=== PATIENT | male | born 1985 | race Caucasian/White ===

== ENCOUNTER 2022-11-21 11:27 | Emergency (ER) | payer OTHER, SELFPAY ==
--- NOTE | ~2022-11-21 | CT_ITS ---
EXAMINATION: CT abdomen pelvis wo IV con CLINICAL INFORMATION: Reason for Exam lower abd pain COMPARISON: No prior CT available for comparison. TECHNIQUE: Multidetector volumetric imaging was performed from the superior aspect of the liver through the pubic symphysis , noncontrasted study Sagittal and coronal reformatted images were obtained on the technologist's workstation. This CT examination was performed using dose optimization techniques as appropriate, variously including the following: *Automated exposure control *Adjustment of mA and/or kV according to patient size (this includes techniques or standardized protocols for targeted exams where dose is matched to indication/reason for exam; i.e. extremities or head) *Use of iterative reconstruction technique DLP: 447 mGy-cm FINDINGS: LOWER THORAX: Included lung bases are clear. HEPATOBILIARY: No focal hepatic lesions. No biliary ductal dilatation. GALLBLADDER: Gallbladder unremarkable. SPLEEN: Spleen is normal in size. PANCREAS: No focal mass or ductal dilatation. STOMACH AND GASTROINTESTINAL TRACT: Stomach is grossly unremarkable. There is no bowel distention or thickening. No CT evidence of appendicitis. ADRENALS: No adrenal nodules. KIDNEYS/URETERS: No hydronephrosis, stones or solid mass lesions. URINARY BLADDER: Partially decompressed. PELVIC VISCERA: Unremarkable PERITONEUM: No free air or fluid. LYMPH NODES: No lymphadenopathy. VASCULAR:Abdominal aorta normal in size, no aneurysm found. BONES, ABDOMINAL WALL AND SOFT TISSUES: Age-appropriate changes of the spine and skeletal system, no destructive osteolytic or osteosclerotic bone lesion found CT/CT abdomen pelvis wo IV con IMPRESSION: No CT evidence of acute intra-abdominal process to explain patient's pain symptoms. No evidence of bowel obstruction. No kidney stones or hydronephrosis. No free air or fluid.
[2022-11-21 12:09] VITALS: BP 127/91; PULSE 90; RESP 16; TEMP 36.6; O2SAT 98; BMI 21.7
--- NOTE | 2022-11-21 12:09 | ED_ITS ---
HPI - Abdominal Pain General Chief Complaint: Nausea/Vomiting/Diarrhea <SHALOM Huizar - Last Filed: 11/21/22 12:13> Stated Complaint: vomiting nausea <SHALOM Huizar - Last Filed: 11/21/22 12:13> Time Seen by Provider: 11/21/22 16:23 <SHALOM Huizar - Last Filed: 11/21/22 12:13> Source: patient <Michael Serrano MD - Last Filed: 11/21/22 17:34> Mode of arrival: ambulatory <Michael Serrano MD - Last Filed: 11/21/22 17:34> Limitations: no limitations <Michael Serrano MD - Last Filed: 11/21/22 17:34> History of Present Illness HPI narrative: Patient with chronic upper abdominal pain been to [facility] had a full workup done including endoscopy which was negative comes here for 4 days of epigastric pain unable to drink much soon he drinks feel pain and vomits able to drink liquids. Patient denies any anxiety patient is on PPI also patient has loose bowel <Michael Serrano MD - Last Filed: 11/21/22 17:34> Related Data Home Medications: Previous Rx's Medication Instructions Recorded metoclopramide HCl 10 mg tablet 10 mg PO Q6H PRN nausea and 11/21/22 (Reglan) vomiting #20 tabs sucralfate 100 mg/mL oral 10 ml PO QID #400 mL 11/21/22 suspension (Carafate) <SHALOM Huizar - Last Filed: 11/21/22 12:13> Allergies/Adverse Reactions: Allergies Allergy/AdvReac Type Severity Reaction Status Date / Time No Known Allergies Allergy Verified 11/21/22 12:13 <SHALOM Huizar - Last Filed: 11/21/22 12:13> Review of Systems Review of Systems Yes all other systems are reviewed and are negative <Michael Serrano MD - Last Filed: 11/21/22 17:34> [facility] Social History Social History: Social History Advance Directives: No Advance Directives Information Provided: No <SHALOM Huizar - Last Filed: 11/21/22 12:13> Physical Exam ED Vital Signs: Vital Signs - 24 hr 11/21/22 12:09 11/21/22 15:56 Temperature 98 F 98.2 F Pulse Rate 90 92 Respiratory Rate 16 16 Blood Pressure 127/91 H 129/78 Pulse Oximetry 98 96 Oxygen Delivery Method Room Air Room Air BMI result Body Mass Index 21.7 <SHALOM Huizar - Last Filed: 11/21/22 12:13> Vital Signs - 24 hr 11/21/22 12:09 11/21/22 15:56 Temperature 98 F 98.2 F Pulse Rate 90 92 Respiratory Rate 16 16 Blood Pressure 127/91 H 129/78 Pulse Oximetry 98 96 Oxygen Delivery Method Room Air Room Air BMI result Body Mass Index 21.7 <Michael Serrano MD - Last Filed: 11/21/22 17:34> Appearance: Alert. Oriented X3. No acute distress. Eyes: No pallor or icterus ENT: Pharynx normal. Oral Mucosa moist Neck: Normal inspection. Neck supple. CVS: Normal heart rate and rhythm. Pulses normal. Respiratory: No respiratory distress. Equal air entry bilateral, no wheezing/rales/rhonchi Abdomen: Soft, mild tenderness in epigastric area Bowel sounds are present, no mass palpable, no CVA tenderness Skin: Skin warm and dry. Normal skin color. Normal skin turgor. Extremities: No lower extremity edema. No calf tenderness Neuro: Oriented X 3. No motor deficit. <Michael Serrano MD - Last Filed: 11/21/22 17:34> Course Course Course Narrative: RME-12:10PM - 37yoM presenting to the ED c c/o chills, sweats, N/V/D and mid to lower abd pain x 4 days reports he feels like there is a blockage . Reports he was seen at [facility] few months ago for similar complaint and was told he had a blockage then the doctor got a 2nd opinion and they told him that it was actually Crohn's disease. Then 1 month later he had endoscope which was normal. So patient is unsure what was actually going on with him. He has not followed up with GI. He has a history of appendectomy. He denies any other symptoms complaints or concerns at this time. Plan: Patient is stable to go back to the waiting room to be evaluated in the ED. Labs ordered at this time. <SHALOM Huizar - Last Filed: 11/21/22 12:13> Medical Decision Making Medical Decision Making [facility] Narrative: Patient with chronic upper abdominal pain likely gastritis had recent endoscopy negative CT scan here also is negative patient able to drink p.o. liquids in the ER has a scheduled visit to see world geography teacher next week. Will give sucralfate and Reglan advised to continue PPI and follow with world geography teacher <Michael Serrano MD - Last Filed: 11/21/22 17:34> Lab Data [facility] Lab Attestation statement: I reviewed the patient's lab results. <Michael Serrano MD - Last Filed: 11/21/22 17:34> Result Diagrams: : 11/21/22 12:19 11/21/22 12:19 <SHALOM Huizar - Last Filed: 11/21/22 12:13> Labs: Lab Results 11/21/22 11/21/22 11/21/22 Range/Units 12:19 12:19 12:19 WBC 7.9 (4.8-10.8) X10*3/uL RBC 5.59 (4.60-5.80) X10*6/uL Hgb 16.5 (14.0-18.0) g/dl Hct 49.2 (42.0-52.0) % MCV 88.0 (80.0-98.0) fL MCH 29.5 (27.0-33.0) pg MCHC 33.5 (31.0-36.0) g/dl RDW 12.7 (11.0-16.0) % Plt Count 358 (160-400) X10*3/uL MPV 9.7 (9.4-12.4) fL Immature Gran % (Auto) 0.4 (0.0-0.4) % Neut % (Auto) 71.5 (45-73) % Lymph % (Auto) 19.5 L (20-40) % Stevens % (Auto) 6.8 (2-11) % Eos % (Auto) 1.0 (0-4) % Baso % (Auto) 0.8 (0-2) % Lymph # (Auto) 1.5 (1.2-4.9) X10*3/uL Stevens # (Auto) 0.5 (0.1-1.2) X10*3/uL Eos # (Auto) 0.1 (0.0-0.4) X10*3/uL Baso # (Auto) 0.1 (0.0-0.2) X10*3/uL Abs Immat Gran (auto) 0.03 (0.00-0.03) X10*3/uL Absolute Neuts (auto) 5.7 (2.0-8.3) x10*3/uL Absolute Nucleated RBC 0.000 (0.0-0.012) X10*3/uL Nucleated RBC % (auto) 0.0 (0.0-0.2) /100WBC PT 12.3 (10.0-13.1) SEC INR 1.1 (0.9-1.1) Sodium 141 (135-145) mmol/L Potassium 4.9 (3.3-5.1) mmol/L Chloride 103 (96-108) mmol/L Carbon Dioxide 28 (22-29) mmol/L Anion Gap 15 (12-20) BUN 16 (9-16) mg/dL Creatinine 1.03 (0.5-1.4) mg/dL Estim Creat Clear Calc 99.2 Estimated GFR > 60 Random Glucose 106 (60-115) mg/dL Calcium 10.7 H (8.4-10.2) mg/dL Magnesium 2.2 (1.6-2.6) mg/dL Total Bilirubin 2.3 H (0.0-1.0) mg/dL AST 14 (5-37) U/L ALT 22 (0-40) U/L Alkaline Phosphatase 72 (39-117) U/L Total Protein 8.0 (6.5-8.0) g/dL Albumin 5.2 H (3.5-5.0) g/dL Lipase 16 (8-78) U/L Influenza Type A (PCR) (Negative) Influenza Type B (PCR) (Negative) RSV RNA Qual (PCR) (Negative) SARS-CoV-2 RNA (RT-PCR) (Negative) 11/21/22 Range/Units 12:19 WBC (4.8-10.8) X10*3/uL RBC (4.60-5.80) X10*6/uL Hgb (14.0-18.0) g/dl Hct (42.0-52.0) % MCV (80.0-98.0) fL MCH (27.0-33.0) pg MCHC (31.0-36.0) g/dl RDW (11.0-16.0) % Plt Count (160-400) X10*3/uL MPV (9.4-12.4) fL Immature Gran % (Auto) (0.0-0.4) % Neut % (Auto) (45-73) % Lymph % (Auto) (20-40) % Stevens % (Auto) (2-11) % Eos % (Auto) (0-4) % Baso % (Auto) (0-2) % Lymph # (Auto) (1.2-4.9) X10*3/uL Stevens # (Auto) (0.1-1.2) X10*3/uL Eos # (Auto) (0.0-0.4) X10*3/uL Baso # (Auto) (0.0-0.2) X10*3/uL Abs Immat Gran (auto) (0.00-0.03) X10*3/uL Absolute Neuts (auto) (2.0-8.3) x10*3/uL Absolute Nucleated RBC (0.0-0.012) X10*3/uL Nucleated RBC % (auto) (0.0-0.2) /100WBC PT (10.0-13.1) SEC INR (0.9-1.1) Sodium (135-145) mmol/L Potassium (3.3-5.1) mmol/L Chloride (96-108) mmol/L Carbon Dioxide (22-29) mmol/L Anion Gap (12-20) BUN (9-16) mg/dL Creatinine (0.5-1.4) mg/dL Estim Creat Clear Calc Estimated GFR Random Glucose (60-115) mg/dL Calcium (8.4-10.2) mg/dL Magnesium (1.6-2.6) mg/dL Total Bilirubin (0.0-1.0) mg/dL AST (5-37) U/L ALT (0-40) U/L Alkaline Phosphatase (39-117) U/L Total Protein (6.5-8.0) g/dL Albumin (3.5-5.0) g/dL Lipase (8-78) U/L Influenza Type A (PCR) NEGATIVE (Negative) Influenza Type B (PCR) NEGATIVE (Negative) RSV RNA Qual (PCR) NEGATIVE (Negative) SARS-CoV-2 RNA (RT-PCR) NEGATIVE (Negative) <SHALOM Huizar - Last Filed: 11/21/22 12:13> Lab Results 11/21/22 11/21/22 11/21/22 Range/Units 12:19 12:19 12:19 WBC 7.9 (4.8-10.8) X10*3/uL RBC 5.59 (4.60-5.80) X10*6/uL Hgb 16.5 (14.0-18.0) g/dl Hct 49.2 (42.0-52.0) % MCV 88.0 (80.0-98.0) fL MCH 29.5 (27.0-33.0) pg MCHC 33.5 (31.0-36.0) g/dl RDW 12.7 (11.0-16.0) % Plt Count 358 (160-400) X10*3/uL MPV 9.7 (9.4-12.4) fL Immature Gran % (Auto) 0.4 (0.0-0.4) % Neut % (Auto) 71.5 (45-73) % Lymph % (Auto) 19.5 L (20-40) % Stevens % (Auto) 6.8 (2-11) % Eos % (Auto) 1.0 (0-4) % Baso % (Auto) 0.8 (0-2) % Lymph # (Auto) 1.5 (1.2-4.9) X10*3/uL Stevens # (Auto) 0.5 (0.1-1.2) X10*3/uL Eos # (Auto) 0.1 (0.0-0.4) X10*3/uL Baso # (Auto) 0.1 (0.0-0.2) X10*3/uL Abs Immat Gran (auto) 0.03 (0.00-0.03) X10*3/uL Absolute Neuts (auto) 5.7 (2.0-8.3) x10*3/uL Absolute Nucleated RBC 0.000 (0.0-0.012) X10*3/uL Nucleated RBC % (auto) 0.0 (0.0-0.2) /100WBC PT 12.3 (10.0-13.1) SEC INR 1.1 (0.9-1.1) Sodium 141 (135-145) mmol/L Potassium 4.9 (3.3-5.1) mmol/L Chloride 103 (96-108) mmol/L Carbon Dioxide 28 (22-29) mmol/L Anion Gap 15 (12-20) BUN 16 (9-16) mg/dL Creatinine 1.03 (0.5-1.4) mg/dL Estim Creat Clear Calc 99.2 Estimated GFR > 60 Random Glucose 106 (60-115) mg/dL Calcium 10.7 H (8.4-10.2) mg/dL Magnesium 2.2 (1.6-2.6) mg/dL Total Bilirubin 2.3 H (0.0-1.0) mg/dL AST 14 (5-37) U/L ALT 22 (0-40) U/L Alkaline Phosphatase 72 (39-117) U/L Total Protein 8.0 (6.5-8.0) g/dL Albumin 5.2 H (3.5-5.0) g/dL Lipase 16 (8-78) U/L Influenza Type A (PCR) (Negative) Influenza Type B (PCR) (Negative) RSV RNA Qual (PCR) (Negative) SARS-CoV-2 RNA (RT-PCR) (Negative) 11/21/22 Range/Units 12:19 WBC (4.8-10.8) X10*3/uL RBC (4.60-5.80) X10*6/uL Hgb (14.0-18.0) g/dl Hct (42.0-52.0) % MCV (80.0-98.0) fL MCH (27.0-33.0) pg MCHC (31.0-36.0) g/dl RDW (11.0-16.0) % Plt Count (160-400) X10*3/uL MPV (9.4-12.4) fL Immature Gran % (Auto) (0.0-0.4) % Neut % (Auto) (45-73) % Lymph % (Auto) (20-40) % Stevens % (Auto) (2-11) % Eos % (Auto) (0-4) % Baso % (Auto) (0-2) % Lymph # (Auto) (1.2-4.9) X10*3/uL Stevens # (Auto) (0.1-1.2) X10*3/uL Eos # (Auto) (0.0-0.4) X10*3/uL Baso # (Auto) (0.0-0.2) X10*3/uL Abs Immat Gran (auto) (0.00-0.03) X10*3/uL Absolute Neuts (auto) (2.0-8.3) x10*3/uL Absolute Nucleated RBC (0.0-0.012) X10*3/uL Nucleated RBC % (auto) (0.0-0.2) /100WBC PT (10.0-13.1) SEC INR (0.9-1.1) Sodium (135-145) mmol/L Potassium (3.3-5.1) mmol/L Chloride (96-108) mmol/L Carbon Dioxide (22-29) mmol/L Anion Gap (12-20) BUN (9-16) mg/dL Creatinine (0.5-1.4) mg/dL Estim Creat Clear Calc Estimated GFR Random Glucose (60-115) mg/dL Calcium (8.4-10.2) mg/dL Magnesium (1.6-2.6) mg/dL Total Bilirubin (0.0-1.0) mg/dL AST (5-37) U/L ALT (0-40) U/L Alkaline Phosphatase (39-117) U/L Total Protein (6.5-8.0) g/dL Albumin (3.5-5.0) g/dL Lipase (8-78) U/L Influenza Type A (PCR) NEGATIVE (Negative) Influenza Type B (PCR) NEGATIVE (Negative) RSV RNA Qual (PCR) NEGATIVE (Negative) SARS-CoV-2 RNA (RT-PCR) NEGATIVE (Negative) <Michael Serrano MD - Last Filed: 11/21/22 17:34> Medications Administered Discontinued Medications Generic Name Dose Route Start Last Admin Trade Name Freq PRN Reason Stop Dose Admin Al Hydroxide/Mg Hydroxide 30 ml 11/21/22 16:43 11/21/22 17:16 Magnesium Hydrox/Alum Hydrox 30 Ml Oral.Susp PO 11/21/22 16:44 30 ml ONCE ONE Administration Lidocaine HCl 15 ml 11/21/22 16:43 11/21/22 17:16 Lidocaine Hcl Viscous 2 % 15 Ml Solution MUCOUS MEM 11/21/22 16:44 15 ml ONCE ONE Administration <SHALOM Huizar - Last Filed: 11/21/22 12:13> Medications Administered Discontinued Medications Generic Name Dose Route Start Last Admin Trade Name Freq PRN Reason Stop Dose Admin Al Hydroxide/Mg Hydroxide 30 ml 11/21/22 16:43 11/21/22 17:16 Magnesium Hydrox/Alum Hydrox 30 Ml Oral.Susp PO 11/21/22 16:44 30 ml ONCE ONE Administration Lidocaine HCl 15 ml 11/21/22 16:43 11/21/22 17:16 Lidocaine Hcl Viscous 2 % 15 Ml Solution MUCOUS MEM 11/21/22 16:44 15 ml ONCE ONE Administration <Michael Serrano MD - Last Filed: 11/21/22 17:34> Discharge Plan Discharge Clinical Impression: Chronic gastritis <SHALOM Huizar - Last Filed: 11/21/22 12:13> Patient Disposition: Home, Self-Care <SHALOM Huizar - Last Filed: 11/21/22 12:13> Instructions: Gastritis (ED) <SHALOM Huizar - Last Filed: 11/21/22 12:13> Additional Instructions: Drink plenty of fluids Avoid fried food/NSAID > ibuprofen Continue to take your Prilosec Sucralfate and Reglan as advised Follow-up with world geography teacher as scheduled <SHALOM Huizar - Last Filed: 11/21/22 12:13> Prescriptions: New sucralfate [Carafate] 100 mg/mL suspension 10 ml PO QID Qty: 400 0RF Rx Instructions: swish in mouth and swallow; use after food/drink metoclopramide HCl [Reglan] 10 mg tablet 10 mg PO Q6H PRN (Reason: nausea and vomiting) Qty: 20 0RF <SHALOM Huizar - Last Filed: 11/21/22 12:13> Referrals: Alex Sandhu [Physician] - 1 week <SHALOM Huizar - Last Filed: 11/21/22 12:13>
--- OUTSIDE RECORDS SUMMARY | 2022-11-21 12:23 | XMS_ITS | Continuity of Care Document ---
:1985 Author Organization [facility] Address [address] [place] [address]- Care Team Providers Name Role Phone Lopez MERCADO, Geovanny Delong Primary Care Physician Encounter [facility] NBR [id number] Date(s): 12/23/20 - 01/22/[address] [address]- Attending Physician: Admrhonda, Aysha Admitting Physician: Admtr, Ar8 Referring Physician: Admtr, Ar8 Allergies, Adverse Reactions, Alerts Substance Reaction Severity Status NKA Active Medications Azithromycin 5 Day Dose Pack 250 mg oral tablet 1 pack/packet, By Mouth, Once, # 6 tablet, 0 Refills, Soft Stop, 03/10/14 21:19:06, Tablet Start Date: 03/10/14 Status: OrderedMucinex = 600 mg, By Mouth, Every 12 hours, 0 Refills, Maintenance, 03/10/14 15:56:49 Start Date: 03/10/14 Status: OrderedNyquil Cold & Flu 2 capsule, By Mouth, Every 6 hours, 0 Refills, Maintenance, 03/10/14 15:57:58 Start Date: 03/10/14 Status: OrderedTussin = 100 mg, By Mouth, Every 4 hours, 0 Refills, Maintenance, 03/10/14 15:56:59 Start Date: 03/10/14 Status: Ordered Social History Social History Type Response Tobacco Use: 4 or less cigarettes(le ss than 1/4 pack)/day in last 30 days. Sex
--- OUTSIDE RECORDS SUMMARY | 2022-11-21 12:23 | XMS_ITS | Continuity of Care Document ---
:1985 Author Organization [facility] Address [address] [place] [address]- Care Team Providers Name Role Phone Lopez MERCADO, Goevanny Delong Primary Care Physician Encounter [facility] Date(s): 09/30/20 - 10/30/[address] [address]- Allergies, Adverse Reactions, Alerts Substance Reaction Severity [...]
--- OUTSIDE RECORDS SUMMARY | 2022-11-21 12:23 | XMS_ITS | Continuity of Care Document ---
:1985 Author Organization [facility] Address [address] [place] [address]- Care Team Providers Name Role Phone Lopez MERCADO, Geovanny Delong Primary Care Physician [id number] Date(s): 10/22/20 - 11/21/20 [facility] [address] [place] [address] Attending Physician: AdmAysha ellis Admitting Physician: Admtr, Aysha Referring Physician: Admtr, Ar8 Allergies, Adverse Reactions, [...]
--- OUTSIDE RECORDS SUMMARY | 2022-11-21 12:23 | XMS_ITS | Continuity of Care Document ---
:1985 Author Organization [facility] Address [address] [place] [address]- Care Team Providers Name Role Phone Geovanny Marroquin MD Primary Care Physician Encounter [facility] Date(s): 09/24/20 - 01/22/[address] [address]- Attending Physician: Geovanny Marroquin MD Allergies, Adverse Reactions, Alerts Substance Reaction Severity [...]
--- OUTSIDE RECORDS SUMMARY | 2022-11-21 12:23 | XMS_ITS | Continuity of Care Document ---
:1985 Author Organization [facility] Address [address] [place] [address]- Care Team Providers Name Role Phone Geovanny Marroquin MD Primary Care Physician Encounter [facility] Date(s): 09/24/20 - 11/21/20 [facility] [address] [place] [address]- Attending Physician: Cam Mcleod DO Referring Physician: Geovanny Marroquin MD Allergies, Adverse Reactions, [...]
--- OUTSIDE RECORDS SUMMARY | 2022-11-21 12:23 | XMS_ITS | Continuity of Care Document ---
:1985 Author Organization [facility] Address [address] [place] [address]- Care Team Providers Name Role Phone Lopez MERCADO, Geovanny Delong Primary Care Physician Encounter [facility] Date(s): 07/24/20 - 08/23/[address] [address]- [facility] Allergies, Adverse Reactions, Alerts Substance Reaction Severity [...]
--- OUTSIDE RECORDS SUMMARY | 2022-11-21 12:23 | XMS_ITS | Continuity of Care Document ---
:1985 Author Organization [facility] Address [address] [place] [address]- Care Team Providers Name Role Phone Lopez MERCADO, Geovanny Delong Primary Care Physician Encounter [facility] Date(s): 08/18/20 - 09/17/[address] [address]- [facility] Allergies, Adverse Reactions, Alerts Substance Reaction [...]
[2022-11-21 12:28] LABS: MANUAL DIFF FLAG NO
[2022-11-21 12:31] LABS: Basophils Absolute Auto 0.1 X10*3/uL (0.0-0.2); Basophils Percent Auto 0.8 % (0-2); Eosinophils Absolute Auto 0.1 X10*3/uL (0.0-0.4); Hematocrit 49.2 % (42.0-52.0); Hemoglobin 16.5 g/dl (14.0-18.0); Imm Gran Abs Auto 0.03 X10*3/uL (0.00-0.03); Imm Gran Pct Auto 0.4 % (0.0-0.4); Lymphocytes Absolute Auto 1.5 X10*3/uL (1.2-4.9); Lymphocytes Percent Auto 19.5 % (20-40); Mean Corpuscular HGB Conc 33.5 g/dl (31.0-36.0); Mean Corpuscular Hemoglobin 29.5 pg (27.0-33.0); Mean Platelet Volume 9.7 fL (9.4-12.4); Monocytes Absolute Auto 0.5 X10*3/uL (0.1-1.2); Monocytes Percent Auto 6.8 % (2-11); Neutrophils Absolute Auto 5.7 x10*3/uL (2.0-8.3); Neutrophils Percent Auto 71.5 % (45-73); Platelet Count 358 X10*3/uL (160-400); Red Blood Count 5.59 X10*6/uL (4.60-5.80); Red Cell Distribution Width 12.7 % (11.0-16.0); White Blood Count 7.9 X10*3/uL (4.8-10.8)
[2022-11-21 12:36] LABS: INTERNATIONAL NORM RATIO 1.1 (0.9-1.1); Prothrombin Time 12.3 SEC (10.0-13.1)
[2022-11-21 12:46] LABS: Alanine Aminotransferase 22 U/L (0-40); Albumin Level 5.2 g/dL (3.5-5.0); Alkaline Phosphatase 72 U/L (39-117); Anion Gap 15 (12-20); Aspartate Amino Transferase 14 U/L (5-37); Bilirubin Total 2.3 mg/dL (0.0-1.0); Blood Urea Nitrogen 16 mg/dL (9-16); Calcium 10.7 mg/dL (8.4-10.2); Carbon Dioxide 28 mmol/L (22-29); Chloride 103 mmol/L (96-108); Creatinine Clr Calc Pharmacy 99.2; Estimated Glomerular Filt Rate > 60; Glucose Random 106 mg/dL (60-115); Lipase 16 U/L (8-78); Magnesium 2.2 mg/dL (1.6-2.6); Potassium 4.9 mmol/L (3.3-5.1); Sodium 141 mmol/L (135-145)
[2022-11-21 13:07] LABS: Influenza A PCR NEGATIVE (Negative); Influenza B PCR NEGATIVE (Negative); Resp Syncy Virus RNA Qual PCR NEGATIVE (Negative); SARS COV2 PCR INHOUSE NEGATIVE (Negative)
[2022-11-21 15:56] VITALS: BP 129/78; PULSE 92; RESP 16; TEMP 36.8; O2SAT 96
[2022-11-21] MEDS: Lidocaine HCl Viscous 2 % 15 ML SOLUTION MUCOUS MEM (17:16)
[2022-11-21] MEDS: Magnesium Hydrox/Alum Hydrox 30 ML ORAL.SUSP PO (17:16)
[2022-11-21 17:31] LABS: Appearance Urine Clear; Color Urine Dark Yellow; Glucose Urine UA Negative (Negative); Leukocyte Esterase Urine Negative (Negative); Nitrite Urine Negative (Negative); Specific Gravity - Urine >= 1.030 (1.005-1.025); UMIC TRIGGER UACC YES; Urine Blood Negative (Negative); Urine Ketones >=160 mg/dL (Negative); Urine Protein 30 (1+) mg/dL (Neg-Trace)
[2022-11-21 18:25] LABS: Bacteria Urine None Seen (None Seen); Squamous Epithelial Cell Urine 0-2 /HPF (0-2); WBC Urine 0-5 /HPF (0-5)
== END 2022-11-21 17:59 | disposition home or self-care (01) ==
PROVIDERS: Physician Assistant Medical; Emergency Provider Internal Medicine; PCP Internal Medicine
DX: K29.50 Unspecified chronic gastritis without bleeding (principal); R10.10 Upper abdominal pain, unspecified; Z20.828 Contact with and (suspected) exposure to other viral communicable diseases
CPT/HCPCS: 0241U; 74176; 80053; 81001; 83690; 83735; 85025; 85610; 99283; 99284